=== PATIENT | male | born 1990 | race Caucasian/White ===

== ENCOUNTER 2021-05-13 16:04 | Emergency (ER) | payer BC ==
[~2021-05-13] VITALS: Ht 177.8 cm; Wt 74.8 kg
[2021-05-13] MEDS ORDERED: VISTARIL25 MG PO (20:09)
== END 2021-05-13 20:15 | disposition home or self-care (01) ==
LOC: ER 16:04
DX: F41.8 Other specified anxiety disorders (principal); Z03.818 Encounter for observation for suspected exposure to other biological agents ruled out; R51.9 Headache, unspecified